=== PATIENT | female | born 1975 | race Two or more races ===

== ENCOUNTER 2019-01-10 12:00 | Inpatient (IN) | payer OTHER ==
[~2019-01-10] VITALS: Ht 167.6 cm; Wt 89.8 kg
== END 2019-01-30 14:34 | DRG 742 ==
LOC: SURH 01-21 12:00 → OB/GYN 01-28 05:30 → O/R 01-28 05:30 → SURH 01-28 08:45 → OB/GYN 01-28 11:10 → SURH 01-28 12:00 → OB/GYN 01-30 14:34
PROVIDERS: Surgery; ADMIT Obstetrics & Gynecology Gynecology
PROC: 0JNC3ZZ Release Pelvic Region Subcutaneous Tissue and Fascia, Percutaneous Approach (ICD-10-PCS; 2019-01-28)
PROC: 0DNW4ZZ Release Peritoneum, Percutaneous Endoscopic Approach (ICD-10-PCS; 2019-01-28)
PROC: 0DQ84ZZ Repair Small Intestine, Percutaneous Endoscopic Approach (ICD-10-PCS; 2019-01-28)
PROC: 0UT90ZZ Resection of Uterus, Open Approach (ICD-10-PCS; principal; 2019-01-28 08:45)
PROC: 0UT50ZZ Resection of Right Fallopian Tube, Open Approach (ICD-10-PCS; 2019-01-28 08:45)
DX: D25.1 Intramural leiomyoma of uterus (principal); K91.71 Accidental puncture and laceration of a digestive system organ or structure during a digestive system procedure; D25.2 Subserosal leiomyoma of uterus; N83.8 Other noninflammatory disorders of ovary, fallopian tube and broad ligament; K66.0 Peritoneal adhesions (postprocedural) (postinfection)